=== PATIENT | female | born 1985 | race Caucasian/White ===

== ENCOUNTER 2020-01-05 07:39 | Outpatient (CLI) | payer OTHER, SELFPAY ==
--- NOTE | ~2020-01-05 | MM_ITS ---
EXAMINATION: MM screening mammo BI HISTORY: Screening mammogram, family history of breast cancer in her mother at age 45 TECHNIQUE: Full field digital craniocaudal and mediolateral oblique views of both breasts were obtain ed. CAD analysis was submitted and interpreted. COMPARISON: None, baseline BREAST PARENCHYMAL COMPOSITION: The breasts are extremely dense, which lowers the sensitivity of mamm ography. FINDINGS: There is no evidence of suspicious mass, calcification, or architectural distortion in eit her breast to suggest malignancy. IMPRESSION: 1. No mammographic evidence of malignancy. Recommend routine screening mammography in one year given history of breast cancer in her mother at age 45. BI-RADS Category 1: Negative Reviewed, dictated and finalized at location A. [facility] IMPRESSION: 1. No mammographic evidence of malignancy. Recommend routine screening mammogra phy in one year given history of breast cancer in her mother at age 45. BI-RADS Category 1: Negative
== END 2020-01-05 07:40 | disposition home or self-care (01) ==
LOC: CHSIMG 07:43
PROVIDERS: PCP Internal Medicine
DX: Z12.31 Encounter for screening mammogram for malignant neoplasm of breast (principal)
CPT/HCPCS: 77067